=== PATIENT | female | born 1970 | race Caucasian/White ===

== ENCOUNTER 2022-01-14 08:55 | Emergency (ER) | payer MEDICAID, SELFPAY ==
[2022-01-14 09:06] VITALS: BP 108/72; PULSE 76; RESP 14; TEMP 36.3; O2SAT 98; BMI 27.1
--- NOTE | 2022-01-14 12:23 | ED_ITS ---
HPI - General Adult General Time Seen by Provider: 12:23 Date Seen: 01/14/22 Chief complaint: Groin Pain Stated complaint: Numbness on groin area/radiates to right leg/foot Time Seen by Provider: 01/14/22 12:02 Source: patient Mode of arrival: ambulatory Limitations: no limitations History of Present Illness HPI narrative: Neeta is a 51-year-old female presents emerged department via private car with with right groin, lower back pain and numbness. Patient states she threw her back out 2 weeks ago, she was just standing in the kitchen making breakfast, at that time she was not able to stand due to pain, this settle down over the last 2 weeks, she does get some intermittent midline lower lumbar pain, some radiation goes to the right buttock. She has been seeing a chiropractor since then, she has had some numbness that radiates from her medial leg down to the top of her right foot, she denies any urinary bowel incontinence or retention, she does get some weakness in that right foot. She is able to ambulate with no difficulties, she does get some lower back pain with driving, she also gets worsening numbness when she does meditation when she crosses her legs. No history of any injuries in the past, she has not had any imaging, patient has not been taking anything for it, she called her primary she told her to go to emergency department. Patient has minimal symptoms at this time. No other concerns at this time. Related Data Home Medications Medication Instructions Recorded Confirmed No Known Home Medications 01/14/22 01/14/22 Allergies Allergy/AdvReac Type Severity Reaction Status Date / Time No Known Drug Allergies Allergy Verified 01/14/22 09:11 Review of Systems Status of ROS: Reports: 10 or more systems reviewed and unremarkable except as noted in History and below [facility] Social History Smoking Status: Never smoker How often do you have a drink containing alcohol: never AUDIT-C Alcohol total score: 0 Non-prescribed substance use: denies use Exam Narrative: Exam Narrative: General: No obvious distress sitting comfortably HEENT: Tympanic membranes within normal limits bilaterally oropharynx clear and moist, pupils equal round reactive to light Neck: Supple full range of motion Lungs: Clear to auscultation bilaterally Heart: Sinus rhythm S1-S2 Abdomen: Nontender to palpation Muscle skeletal: No CVA tenderness, mild tenderness to palpation the midline lower lumbar spine L5-S1, mild tenderness to palpation the SI joint on the right, straight leg raise and crossover at 20? negative, she has equal patellar reflexes bilaterally, +5 strength lower extremities bilaterally. CMS intact Neuro: Gait within normal limits, alert awake and oriented x3, GCS 15 Const: Vital Signs, click to edit/add: Vital Signs - 24 hr 01/14/22 09:06 Temperature 97.4 F L Pulse Rate [Pulse Oximeter] 76 Respiratory Rate 14 Blood Pressure [Ri ght Upper Arm] 108/72 Pulse Oximetry 98 Oxygen Delivery Me thod Room Air Course Course Hospital Course: 12:20 PM: AIDET performed, vitals are normal at this time, no red flags on exam, workup will include no pain medications at this time, will do some imaging, XR lumbar spine versus MRI. Vital Signs Vital signs: Initial Vital Signs Temperature 97.4 F L 01/14/22 09:06 Temperature Source Temporal Artery Scan 01/14/22 09:06 Pulse Rate 76 01/14/22 09:06 Pulse Rhythm 01/14/22 09:06 Respiratory Rate 14 01/14/22 09:06 Blood Pressure 108/72 01/14/22 09:06 Blood Pressure Mean 84 01/14/22 09:06 Blood Pressure Position Sitting 01/14/22 09:06 Pulse Oximetry 98 01/14/22 09:06 Oxygen Delivery Method 01/14/22 09:06 Vital Signs Temperature 97.4 F L 01/14/22 09:06 Pulse Rate 76 01/14/22 09:06 Respiratory Rate 14 01/14/22 09:06 Blood Pressure 108/72 01/14/22 09:06 Pulse Oximetry 98 01/14/22 09:06 Oxygen Delivery Method 01/14/22 09:06 Temperature 97.4 F L 01/14/22 09:06 Pulse Rate 76 01/14/22 09:06 Respiratory Rate 14 01/14/22 09:06 Blood Pressure 108/72 01/14/22 09:06 Pulse Oximetry 98 01/14/22 09:06 Oxygen Delivery Method 01/14/22 09:06 Discharge Plan Discharge Clinical Impression: Degenerative arthritis of lumbar spine Patient Disposition: Home, Self-Care Instructions: Lower Back Exercises (ED) Additional Instructions: Follow up appointment is scheduled at the [facility] on 01/21 with a 9:00am arrival time. Your insurance cards and a co-pay will be required. If you have any questions or need to reschedule, please call [phone]. [facility] [address] [place] [address] Prescriptions: No Action No Known Home Medications Stand Alone Forms: [employer] Instructions
--- NOTE | 2022-01-14 12:31 | CRLHL7_ITS ---
For Patients: As a result of the Century Cures Act, medical imaging exams and procedure reports are released immediately into your electronic medical record. You may view this report before your referring provider. If you have questions, please contact your health care provider. Indication: Numbness, weakness, right lower extremity Technique: Multiplanar, multisequence MR images of the lumbar spine were obtained without the administration of IV contrast. Comparison: None available. Findings: The lumbar vertebral body heights are grossly maintained. There is mild straightening of the normal lumbar lordosis without significant spondylolisthesis. There is degenerative disc disease with disc desiccation, height loss and disc protrusions at multiple levels. There is a somewhat uniformly low T1 and T2 marrow signal intensity which may represent mild marrow reconversion changes. The conus medullaris terminates at the T12-L1 level and is normal in signal and contour. The paraspinous soft tissues are grossly unremarkable. L1-L2: There is a diffuse disc bulge with a small left foraminal protrusion. There is no significant spinal canal stenosis or neural foraminal narrowing. L2-L3: There is a diffuse disc bulge with a left paracentral disc protrusion and mild effacement of the left lateral recess. There is mild spinal canal narrowing. There is mild bilateral neural foraminal narrowing. L3-L4: There is a diffuse disc bulge with a central disc protrusion. There is mild facet arthrosis and mild spinal canal narrowing. There is mild bilateral neural foraminal narrowing. L4-L5: There is a diffuse disc bulge with a central disc protrusion and small annular fissure with mild spinal canal narrowing. There is mild left greater than right neural foraminal narrowing. L5-S1: There is a diffuse disc bulge with a small central disc protrusion with mild spinal canal narrowing. There is mild bilateral neural foraminal narrowing. Impression: Minimal multilevel degenerative changes of the lumbar spine as described above worst at the L2-L3 and L3-L4 levels. Dictated by Dirk Wiseman MD @ 01/14/2022 1:52:54 PM (Electronically Signed)
== END 2022-01-14 14:42 | disposition home or self-care (01) ==
PROVIDERS: Emergency Provider Student in an Organized Health Care Education/Training Program; PCP Student in an Organized Health Care Education/Training Program
DX: M51.36 Other intervertebral disc degeneration, lumbar region (principal)
CPT/HCPCS: 72148; 99282; 99283; 99284